=== PATIENT | male | born 1955 | race Caucasian/White ===

== ENCOUNTER → 2019-01-17 | Outpatient (CLI) | payer BC ==
[~2019-01-17] MED LIST: ASPI-555 PO; DIGO250T84 PO; DOXY100T2 PO; LEVO175T9 PO; LISI10TA7 PO; METF-444 PO; METO100T14 PO; PRAV40TA3 PO
== END | disposition home or self-care (01) ==
LOC: RAH 12:48
PROVIDERS: ATTEND Internal Medicine Cardiovascular Disease
DX: G93.89 Other specified disorders of brain (principal); G31.9 Degenerative disease of nervous system, unspecified
CPT/HCPCS: 70450

== ENCOUNTER → 2019-10-31 | Outpatient (CLI) | payer BC ==
[~2019-10-31] MED LIST changes: +DIGO250T73 PO; -DIGO250T84 PO
== END | disposition home or self-care (01) ==
LOC: SHCH 10:06
PROVIDERS: ATTEND Internal Medicine Cardiovascular Disease
DX: I49.5 Sick sinus syndrome (principal)
CPT/HCPCS: 93306

== ENCOUNTER → 2019-10-31 | Outpatient (CLI) | payer OTHER | END | disposition home or self-care (01) | LOC: RAH 10:06 | PROVIDERS: ATTEND Internal Medicine Cardiovascular Disease | DX: Z13.6 Encounter for screening for cardiovascular disorders (principal) | CPT/HCPCS: 75571 ==

== ENCOUNTER → 2019-12-03 | Outpatient (CLI) | payer BC ==
[~2019-12-03] MED LIST changes: -ASPI-555 PO; +ASPI-556 PO; +CLOP75TA14 PO; +DIPH25TA22 PO; +HYDR12.54 PO; +LISI40TA4 PO; +PRED20TA3 PO; +SIMV40TA59 PO
== END | disposition home or self-care (01) ==
LOC: RAH 10:31
PROVIDERS: ATTEND Psychiatry & Neurology Neurology
DX: G93.89 Other specified disorders of brain (principal)
CPT/HCPCS: 70450

== ENCOUNTER → 2019-12-15 | Outpatient (CLI) | payer BC ==
[~2019-12-15] MED LIST changes: +ASPI-555 PO; -ASPI-556 PO; -CLOP75TA14 PO; -DIPH25TA22 PO; -HYDR12.54 PO; -LISI40TA4 PO; -PRED20TA3 PO; +REGADENOSON 0.4 MG/5 ML PF SYG IVP SCH; -SIMV40TA59 PO
== END | disposition home or self-care (01) ==
LOC: SHCH 07:59
PROVIDERS: ATTEND Internal Medicine Cardiovascular Disease
DX: I10 Essential (primary) hypertension (principal); I48.20 Chronic atrial fibrillation, unspecified
CPT/HCPCS: 78452; 93017; 96374; A9500 ×2; J2785

== ENCOUNTER 2020-06-11 07:20 | Observation (INO) | payer BC ==
[2020-06-09 09:22] LABS: CREATININE 1.3 mg/dL (0.5-1.5); POTASSIUM 4.5 mmol/L (3.5-5.1)
[2020-06-09 09:28] LABS: INR 1.01 (0.85-1.15); PARTIAL THROMBOPLASTIN TIME 29.4 SEC (26.3-35.5); PROTHROMBIN TIME 10.9 SEC (9.6-11.6)
[2020-06-09 09:51] LABS: BASOPHILS % (AUTO) 0.8 % (0.0-5.0); EOSINOPHILS % (AUTO) 1.7 % (0.0-8.0); HEMATOCRIT 47.9 % (42-54); LYMPHOCYTES % (AUTO) 14.7 % (21.0-51.0); MEAN CORPUSCULAR HEMOGLOBIN 29.7 pg (27.0-33.0); MEAN CORPUSCULAR HGB CONC 31.9 g/dL (32.0-36.0); MONOCYTES % (AUTO) 5.7 % (3.0-13.0); NEUTROPHILS % (AUTO) 76.7 % (40.0-77.0); PLATELET COUNT (AUTO) 206 K/uL (130-400); RED BLOOD CELL COUNT(AUTO) 5.15 MIL/uL (4.50-6.20); RED CELL DISTRIBUTION WIDTH 13.8 % (11.0-15.5); WHITE BLOOD COUNT (AUTO) 7.7 K/uL (4.8-10.8)
[2020-06-09 09:57] LABS: APPEARANCE,URINE Clear (CLEAR); BILIRUBIN,URINE Negative (NEGATIVE); COLOR,URINE Yellow (YELLOW); GLUCOSE, URINE (UA) Negative (NEGATIVE); KETONES,URINE Negative (NEGATIVE); LEUKOCYTE ESTERASE ,URINE Negative (NEGATIVE); NITRATE,URINE Negative (NEGATIVE); OCCULT BLOOD,URINE Negative (NEGATIVE); PROTEIN,URINE Negative (NEGATIVE)
--- NOTE | 2020-06-10 10:58 | NUR ---
Reported fisher reef net of 1.3 to Philipp HUMPHREY, no new orders.
[~2020-06-11] VITALS: Ht 188 cm; Wt 144.0 kg
[2020-06-11] VITALS (21 sets, daily range): BP systolic 118–150; BP diastolic 76–93
[~2020-06-11 07:20] MED LIST changes: +ACETAMINOPHEN 325 MG TAB PO PRN; -ASPI-555 PO; +ASPI-556 PO; +CLOP75TA14 PO; +DIPH25TA18 PO; -DOXY100T2 PO; -LISI10TA7 PO; +LISI40TA4 PO; -PRAV40TA3 PO; +PRED20TA3 PO; -REGADENOSON 0.4 MG/5 ML PF SYG IVP SCH; +SIMV40TA59 PO; +SODIUM CHLORIDE 0.9% 500ML 500 ML IV SCH
[2020-06-11 07:42] LABS: HEMATOCRIT 45.1 % (42-54); MEAN CORPUSCULAR HEMOGLOBIN 29.6 pg (27.0-33.0); MEAN CORPUSCULAR HGB CONC 31.7 g/dL (32.0-36.0); MEAN CORPUSCULAR VOLUME 93.4 fL (79-99); RED BLOOD CELL COUNT(AUTO) 4.83 MIL/uL (4.50-6.20); RED CELL DISTRIBUTION WIDTH 13.6 % (11.0-15.5); WHITE BLOOD COUNT (AUTO) 13.4 K/uL (4.8-10.8)
[2020-06-11] MEDS ORDERED: SODIUM CHLORIDE 0.9% 1000ML 1,000 ML IV SCH (08:00)
[2020-06-11] MEDS ORDERED: METF-446 PO (08:22)
[2020-06-11] MEDS: DiphenhydrAMINE HCL 50 MG/ML VIAL IVP SCH (12:09)
[2020-06-11] MEDS: METHYLPREDNISOLONE SOD SUCC 125MG/2ML VIAL IVP SCH (12:09)
[2020-06-11] MEDS ORDERED: SODIUM BICARB 50MEQ 50ML VIAL 50 ML ONE (12:10)
[2020-06-11] MEDS ORDERED: HEPARIN SODIUM 1000UNIT/ML 10ML VIAL ONE (12:10)
[2020-06-11] MEDS ORDERED: IOHEXOL 350 MG/ML 100ML INFUS..BTL IV ONE (12:11)
[2020-06-11] MEDS ORDERED: NITROGLYCERIN 2 MG/VIAL VIAL IV ONE (12:11)
[2020-06-11] MEDS ORDERED: LIDOCAINE HCL 2% 20ML ONE (12:11)
[2020-06-11] MEDS ORDERED: IOHEXOL-350 75 ML VIAL IV ONE (12:11)
--- NOTE | 2020-06-11 12:25 | NUR ---
PROCEDURE PT TAKEN TO HEAD PORTER BAGGAGE VIA BED,NO DISTRESS NOTED. SPOUSE AT BEDSIDE.
[2020-06-11] MEDS ORDERED: MIDAZOLAM HCL 1 MG/ML 2ML VIAL ONE ×2 (12:34→12:49)
[2020-06-11] MEDS ORDERED: MEPERIDINE-PF 25 MG/ML SYG ONE ×2 (12:34→12:49)
[2020-06-11] MEDS ORDERED: ASPIRIN 81MG TAB.CHEW ONE (13:20)
[2020-06-11] MEDS ORDERED: NITROGLYCERIN 4.1 GM SPRAY TL ONE (13:54)
[2020-06-11] MEDS ORDERED: ONDANSETRON HCL 4 MG/2 ML VIAL IVP PRN (14:15)
[2020-06-11] MEDS ORDERED: DEXTROSE 50%-WATER 50 ML DISP.SYRIN IV PRN (14:15)
[2020-06-11] MEDS ORDERED: GLUCAGON 1MG KIT 1 MG ML IM PRN (14:15)
[2020-06-11] MEDS ORDERED: ACETAMINOPHEN-CODEINE 300/30MG TAB PO PRN ×2 (14:15)
[2020-06-11] MEDS ORDERED: LABETALOL 20 MG/4 ML DISP.SYRIN IV PRN (14:15)
--- NOTE | 2020-06-11 14:50 | NUR ---
post received pt from research laboratory technician. s/p [facility] with ptca stent proximal RCA. left groin with bruising noted , no hematoma. mynx closure device with pressure dressing in place. see post cath assesment. vs stable on arrival. pt / spouse instructed to maintain bedrest until tomorrow am. pt/ spouse instructed on plan of care. call light within reach. report given to brandon patel rn to resume care of patient
--- NOTE | 2020-06-11 17:28 | NUR ---
REPORT TO DANIELLE FELDMAN RN
--- NOTE | 2020-06-11 19:21 | NUR ---
1750: REPORT GIVEN BY Jones MCCOY RN, PT STABLE NO DISTRESS, VITAL WNL. PT LAYING FLAT IN BED. LT GROIN 2X2 GAUZE WITH OPSITE QUATER SIZE AMOUNT OF BLOOD, AREA MARKED WITH CONTINUE TO MONITOR. CATH SITE TO LT GROIN BRUISED FROM PREVIOUS PRESSURE HELD, PT STATES NO PAIN TO CATH SITE. ILA LOWER EXTREMITIES DOPPLER, WEAK PULSES. NOTED SMALL NICKS TO BILATERAL GROIN SITE, PT STATES RESULT FROM SHAVING FOR PREP THIS MORNING FOR PROCEDURE. NO OOZING TO LT GROIN NOTED, NO ACTIVE BLEEDING TO CATH SITE.
--- NOTE | 2020-06-11 19:36 | NUR ---
REPORT GIVEN TO JUAN RN, RM 403 PT STABLE NO DISTRESS , VITAL WNL. PT LT GROIN DRESSING INTACT , QUATER SIZE BLOOD NOTED AND MARKED, NO ACTIVE BLEEDING OR HEMATOMA NOTED, REPORTED TO JUAN. PT TRANSFERRED IN BED WITH PERSONAL BELONGINGS.
--- NOTE | 2020-06-11 20:00 | NUR ---
PATIENT ARRIVED FROM [employer]IATION NEUROPSYCHOLOGIST. BRUISING TO LEFT GROIN OTHERWISE SOFT WITH MILD TENDERNESS. PRESSURE DRESSING IN PLACE. BLOOD TO THE DRESSING WITH NO ACTIVE BLEEDING. BILATERAL PEDAL PULSES ASSESSED WITH DOPPLER, INTACT. DENIES CHEST PAIN OR SOB. WILL CONTINUE TO MONITOR. BEDREST UNTIL AM.
[2020-06-11] MEDS: INSULIN HUMULIN R 100 UNIT/ML 3ML SQ SCH (22:03)
[2020-06-11] MEDS: METOPROLOL TARTRATE 50 MG TAB PO SCH (22:04)
[2020-06-11] MEDS: SIMVASTATIN 20 MG TABLET PO SCH (22:04)
[2020-06-11] MEDS: ASPIRIN 81 MG EC TAB PO SCH (22:04)
[2020-06-11] MEDS: DIGOXIN 250 MCG TABLET PO SCH (22:04)
[2020-06-12] VITALS (8 sets, daily range): BP systolic 123–151; BP diastolic 69–103
[2020-06-12 06:23] LABS: HEMATOCRIT 41.9 % (42-54); MEAN CORPUSCULAR HEMOGLOBIN 29.8 pg (27.0-33.0); MEAN CORPUSCULAR HGB CONC 32.5 g/dL (32.0-36.0); MEAN CORPUSCULAR VOLUME 91.9 fL (79-99); RED BLOOD CELL COUNT(AUTO) 4.56 MIL/uL (4.50-6.20); RED CELL DISTRIBUTION WIDTH 13.8 % (11.0-15.5); WHITE BLOOD COUNT (AUTO) 12.2 K/uL (4.8-10.8)
[2020-06-12] MEDS: LEVOTHYROXINE 100 MCG TABLET PO SCH (06:26)
[2020-06-12] MEDS: LEVOTHYROXINE 75 MCG TABLET PO SCH (06:26)
[2020-06-12] MEDS: INSULIN HUMULIN R 100 UNIT/ML 3ML SQ SCH ×4 (06:28→20:56)
--- NOTE | 2020-06-12 06:30 | NUR ---
PATIENT SAT UP IN BED. GROIN WITH BRUISING NO HEMATOMA. PEDAL PULSES INTACT WITH DOPPLER
[2020-06-12 06:38] LABS: CREATININE 1.1 mg/dL (0.5-1.5); DIGOXIN 0.9 ng/mL (0.50-2.00); POTASSIUM 4.2 mmol/L (3.5-5.1)
[2020-06-12] MEDS: CLOPIDOGREL BISULFATE 75 MG TAB PO SCH (08:22)
[2020-06-12] MEDS: METOPROLOL TARTRATE 50 MG TAB PO SCH ×2 (08:23→20:55)
[2020-06-12] MEDS: LISINOPRIL 40 MG TABLET PO SCH (08:24)
[2020-06-12] MEDS: SODIUM CHLORIDE 0.9% 1000ML 1,000 ML IV SCH (08:33)
[2020-06-12] MEDS: METHYLPREDNISOLONE SOD SUCC 125MG/2ML VIAL IVP SCH (10:30)
[2020-06-12] MEDS: DiphenhydrAMINE HCL 50 MG/ML VIAL IVP SCH (10:30)
[2020-06-12] MEDS: ASPIRIN 81 MG EC TAB PO SCH (20:54)
[2020-06-12] MEDS: SIMVASTATIN 20 MG TABLET PO SCH (20:54)
[2020-06-12] MEDS: DIGOXIN 250 MCG TABLET PO SCH (21:31)
[2020-06-13 04:18] VITALS: BP 136/83
[2020-06-13] MEDS: LEVOTHYROXINE 75 MCG TABLET PO SCH (05:46)
[2020-06-13] MEDS: LEVOTHYROXINE 100 MCG TABLET PO SCH (05:46)
[2020-06-13] MEDS: INSULIN HUMULIN R 100 UNIT/ML 3ML SQ SCH (05:46)
[2020-06-13 06:17] LABS: HEMATOCRIT 45.9 % (42-54); MEAN CORPUSCULAR HEMOGLOBIN 29.2 pg (27.0-33.0); MEAN CORPUSCULAR HGB CONC 31.2 g/dL (32.0-36.0); MEAN CORPUSCULAR VOLUME 93.7 fL (79-99); RED BLOOD CELL COUNT(AUTO) 4.9 MIL/uL (4.50-6.20); RED CELL DISTRIBUTION WIDTH 14.2 % (11.0-15.5); WHITE BLOOD COUNT (AUTO) 9.2 K/uL (4.8-10.8)
[2020-06-13 06:30] LABS: CREATININE 1.2 mg/dL (0.5-1.5); POTASSIUM 4.2 mmol/L (3.5-5.1)
[2020-06-13 08:00] VITALS: BP 145/81
[2020-06-13] MEDS: METOPROLOL TARTRATE 50 MG TAB PO SCH (08:32)
[2020-06-13] MEDS: CLOPIDOGREL BISULFATE 75 MG TAB PO SCH (08:33)
[2020-06-13] MEDS: LISINOPRIL 40 MG TABLET PO SCH (08:33)
[2020-06-13] MEDS: METHYLPREDNISOLONE SOD SUCC 125MG/2ML VIAL IVP SCH (08:34)
[2020-06-13] MEDS: DiphenhydrAMINE HCL 50 MG/ML VIAL IVP SCH (08:34)
--- NOTE | 2020-06-13 11:17 | NUR ---
discharge patient being discharged home. went over discharge instructions with patient...answered all questions and concerns..he states he already has a fu with slot router jef for the ...patient aware of prescriptions sent to his [facility] in [place]...
== END 2020-06-13 11:58 | disposition home or self-care (01) ==
LOC: DAH 07:20 → DAHIP 07:21 → 4AH 19:55
PROVIDERS: ADMIT Internal Medicine; ATTEND Internal Medicine
DX: I25.119 Atherosclerotic heart disease of native coronary artery with unspecified angina pectoris (principal); I10 Essential (primary) hypertension; E03.9 Hypothyroidism, unspecified; E11.9 Type 2 diabetes mellitus without complications; E78.2 Mixed hyperlipidemia; E66.01 Morbid (severe) obesity due to excess calories; S30.1XXA Contusion of abdominal wall, initial encounter; Z95.5 Presence of coronary angioplasty implant and graft; Z79.84 Long term (current) use of oral hypoglycemic drugs; Z79.899 Other long term (current) drug therapy; Z68.41 Body mass index [BMI] 40.0-44.9, adult; X58.XXXA Exposure to other specified factors, initial encounter; Y93.89 Activity, other specified; Y92.89 Other specified places as the place of occurrence of the external cause
CPT/HCPCS: 36415 ×4; 71045; 76882; 80048 ×3; 80162; 81003; 82948 ×8; 85025; 85027 ×3; 85610; 85730; 93005; 93454; 96361; 96372 ×2; 96374; 96375; A4215; A4216; A4221; A4222; A4223 ×3; A4606; A4663; C1760 ×2; C1769; C1874; C1887; C1894 ×2; C9600; G0378 ×18; J1200; J1644 ×2; J1815; J2175 ×2; J2250 ×2; J2930; J3490 ×3; J7030; Q9965; Q9967; 99156; 99157

== ENCOUNTER → 2022-03-15 | Outpatient (CLI) | payer BC ==
[~2022-03-15] MED LIST changes: -ACETAMINOPHEN 325 MG TAB PO PRN; -LISI40TA4 PO; +LISI40TA9 PO; -METF-444 PO; +METF-446 PO; -SODIUM CHLORIDE 0.9% 500ML 500 ML IV SCH
== END | disposition home or self-care (01) ==
LOC: SHCH 10:19
PROVIDERS: ATTEND Internal Medicine Cardiovascular Disease
DX: I51.7 Cardiomegaly (principal); I25.5 Ischemic cardiomyopathy; Z95.5 Presence of coronary angioplasty implant and graft
CPT/HCPCS: 93306

== ENCOUNTER → 2024-07-25 | Outpatient (CLI) | payer BC ==
[~2024-07-25] MED LIST changes: +CLOP-31 PO; -CLOP75TA14 PO
[2024-07-25] MEDS: REGADENOSON 0.4 MG/5 ML PF SYG IVP ONE (11:11)
== END | disposition home or self-care (01) ==
LOC: SHCH 08:29
PROVIDERS: ATTEND Internal Medicine Cardiovascular Disease
DX: I25.10 Atherosclerotic heart disease of native coronary artery without angina pectoris (principal)
CPT/HCPCS: 78452; 93017; J2785; A9500 ×2

== ENCOUNTER → 2024-10-21 | Outpatient (CLI) | payer MEDICARE ==
[~2024-10-21] MED LIST changes: +AMLO-257 PO; -ASPI-556 PO; -CLOP-31 PO; +DILT240T13 PO; -DIPH25TA18 PO; +EMPA25TA PO; -PRED20TA3 PO; +RIVA20TA PO
--- NOTE | 2024-10-22 09:44 | HMCSR ---
APPROVED REPORT EXAM: Two-dimensional and M-mode echocardiogram with Doppler and color Doppler. INDICATION ICD: Essential (primary) Hypertension I10.0 2D Dimensions RVDd4.5 cmLVEF(%)51.3 (>50%)LVED Vol(simp.)135.0 mL IVSd1.3 (0.7-1.1cm)FS(%)26 %LVES Vol(simp.)55.0 mL LVDd4.9 (3.8-5.6cm)Ao Root(2D)3.6 (2.0-3.7cm)LVEF(%, simp.)59 % PWd1.4 (0.7-1.1cm)LVOT diam2.3 (1.8-2.4cm)LA ESV INDEX (BP)56.33 mL/m2 LVDs3.6 (2.5-4.0cm) Aortic Valve AoV Vmax1.5 m/Filemon Peak GR8.4 mmHgLVOT Vmax1.3 m/s AoV VTI0.3 mAo Mean GR5.2 mmHgLVOT VTI0.24 m MELITA (VMAX)3.7 cm2AVA (VTI) 3.7 cm2 Mitral Valve MV E Vmax94.8 cm/sDECEL Smjs519 ms P 1/2 T55 ms MVA (PHT)4.0 cm2 TDI E/E' Medial8.6E/E' Lateral9.1 Pulmonary Valve PV Vmax0.8 m/sPV VTI0.14 mPV Mean GR1 mmHg PV Peak GR2.6 mmHg Tricuspid Valve TR Vmax2.1 m/sRAP (EST) 3 bpSbRVJO08.0 mmHg TR Peak GR17.0 mmHg Left Ventricle Left ventricular cavity size is normal. There is mild to moderate concentric left ventricular hypertr ophy. LVEF is 50-55%. No left ventricle thrombus noted on this study. Indeterminate diastolic dysfunc tion. Right Ventricle The right ventricle is dilated. The right ventricular systolic function is normal. Atria The left atrium is severely dilated. The right atrium is moderately dilated. Aortic Valve Aortic valve is trileaflet. Aortic valve leaflets are sclerotic but open well. Trace aortic regurgita tion. There is no aortic valvular stenosis. Mitral Valve Mitral valve leaflets are sclerotic but open well. Mitral regurgitation is trace. There is no mitral valve stenosis. Tricuspid Valve The tricuspid valve leaflets appear normal. There is trace tricuspid regurgitation. Pulmonic Valve Pulmonic valve is not well visualized. There is trace pulmonic valvular regurgitation. Great Vessels The aortic root is normal in size. IVC is dilated and collapses >50% with inspiration. Pericardium No pericardial effusion. Conclusion Left ventricular cavity size is normal. There is mild to moderate concentric left ventricular hypertrophy. LVEF is 50-55%. The right ventricle is dilated. The left atrium is severely dilated. The right atrium is moderately dilated. Aortic valve is trileaflet. Aortic valve leaflets are sclerotic but open well. Trace aortic regurgitation. Mitral valve leaflets are sclerotic but open well. Mitral regurgitation is trace. There is trace tricuspid regurgitation. The aortic root is normal in size. IVC is dilated and collapses >50% with inspiration. No pericardial effusion.
== END | disposition home or self-care (01) ==
LOC: SHCH 14:00
PROVIDERS: ATTEND Internal Medicine Cardiovascular Disease
DX: I08.0 Rheumatic disorders of both mitral and aortic valves (principal); I11.9 Hypertensive heart disease without heart failure
CPT/HCPCS: 93306

== ENCOUNTER 2025-06-08 06:40 | Day surgery (SDC) | payer MEDICARE ==
[2025-06-05 12:42] LABS: IMMATURE GRANULOCYTE ABSOLUTE 0.02 K/uL (0-1); NUCLEATED RED BLOOD CELLS 0.0 % (0.0-0.19); PLATELET COUNT (AUTO) 166 K/uL (130-400); RED BLOOD CELL COUNT(AUTO) 5.35 MIL/uL (4.50-6.20); RED CELL DISTRIBUTION WIDTH 14.9 % (11.0-15.5); WHITE BLOOD COUNT (AUTO) 6.1 K/uL (4.8-10.8)
[2025-06-05 12:52] LABS: INR 1.08 (0.85-1.15)
[2025-06-05 12:57] VITALS: BP 130/63; PULSE 73; RESP 18; TEMP 97.8
[2025-06-05 12:58] LABS: CREATININE 1.3 mg/dL (0.5-1.3); GLOMERULAR FILTR. RATE CALC 60.0 mL/min (>90); GLUCOSE,RANDOM 173.0 mg/dL (70-105); SODIUM SERUM 138.0 mmol/L (136-145); UREA NITROGEN, BLOOD 15.0 mg/dL (7-18)
--- NOTE | 2025-06-05 13:20 | EKG ---
[facility] Test Date: 2025-06-05 Test Time: 12:23:33 Pat Name: YOVANI GUALLPA Department: [facility] Room: Gender: M Assistant Credit Manager: [id number] : 1955 Requested By: Maurisio HIDALGO Order Number: [id number] Reading MD: Thompson Gonzalez Measurements Intervals [place] Rate: 70 P: 0 MS: 0 QRS: 158 QRSD: 212 T: -35 QT: 487 QTc: 524 Interpretive Statements ventricular-paced rhythm Biventricular paced rhythm Compared to ECG 10/08/2024 12:57:15 No significant changes Electronically Signed On 06-05-2025 13:33:23 CDT by Thompson Gonzalez Please click the below link to view image of tracing.
--- NOTE | 2025-06-05 14:02 | NUR ---
REPORT ADONIS ONEIL GRAIN OPERATIONS MANAGER INFORMED PT LAST TOOK XARELTO 20MG ON 06/01 DUE TO PT RUNNING OUT. OK TO PROCEED WITH PROCEDURE AND SHE WILL BE CALLING IN A REFILL FOR PT
[~2025-06-08] VITALS: Ht 188 cm; Wt 131.5 kg
[2025-06-08] VITALS (11 sets, daily range): BP systolic 127–140; BP diastolic 81–95; PULSE 71–80; RESP 14–19; TEMP 96.9–97.6
[~2025-06-08 06:40] MED LIST changes: -AMLO-257 PO; +HYDR25TA67 PO; +LISI40TA15 PO; -LISI40TA9 PO
[2025-06-08] MEDS: 0.9%NACL 1000ML 1,000 ML IV SCH (07:35)
[2025-06-08] MEDS ORDERED: LIDOCAINE HCL 1% MDV 50ML VIAL ONE (08:43)
[2025-06-08] MEDS ORDERED: SODIUM BICARB 50MEQ 50ML VIAL 50 ML ONE (08:43)
[2025-06-08] MEDS ORDERED: MIDAZOLAM HCL 1 MG/ML 2ML VIAL ONE ×4 (09:12→09:55)
--- NOTE | 2025-06-08 10:50 | NUR ---
DRESSING: PRESSURE DRESSING TO LEFT UPPER CHEST DRY/INTACT
[2025-06-08] MEDS ORDERED: DEXTROSE 50%-WATER 50 ML DISP.SYRIN IV PRN (11:00)
--- NOTE | 2025-06-08 11:05 | NUR ---
DRESSING: PRESSURE DRESSING TO LEFT UPPER CHEST REMAINS DRY/INTACT. Addendum: 06/08/25 at 1136 by IRSI CISNEROS RN RN ICE BAG APPLIED TO OP-SITE
--- NOTE | 2025-06-08 11:20 | NUR ---
DRESSING: PRESSURE DRESSING TO LEFT UPPER CHEST DRY/INTACT WITH ICE BAG IN PLACE.
--- NOTE | 2025-06-08 11:35 | NUR ---
DRESSING: PRESSURE DRESSING TO LEFT UPPER CHEST REMAINS DRY/INTACT WITH ICE BAG IN PLACE.
--- NOTE | 2025-06-08 11:45 | NUR ---
DRESSING: PRESSURE DRESSING TO LEFT UPPER CHEST REMAINS DRY/INTACT WITH ICE BAG IN PLACE TO OPSITE
--- NOTE | 2025-06-08 12:15 | NUR ---
dressing: pressure dressing to left upper chest remains dry/intact with ice bag in place
--- NOTE | 2025-06-08 12:45 | NUR ---
dressing: pressure dressing to left upper chest remains dry/intact with no active bleeding, ice bag in place
--- NOTE | 2025-06-08 13:15 | NUR ---
dressing: pressure dressing to left upper chest remains dry/intact with ice bag in place
--- NOTE | 2025-06-08 14:11 | NUR ---
urinary: voided 450 cc dark yellow color urine per urinal without difficulty.
--- NOTE | 2025-06-08 14:15 | NUR ---
DRESSING PRESSURE DRESSING TO LEFT UPPER CHEST. NO ACTIVE BLEEDING OR DRAINAGE NOTED. NO REDNESS OR SWELLING NOTED.
--- NOTE | 2025-06-08 15:00 | NUR ---
DRESSING REMOVED PRESSURE DRESSING. 4X4 NON ADHERENT GAUZE DRY AND INTACT. NO ACTIVE BLEEDING OR DRAINAGE DRESSING DRY AND INTACT. NO REDNESS OR SWELLING NOTED. LEFT UPPER CHEST SOFT TO TOUCH.
== END 2025-06-08 15:16 | disposition home or self-care (01) ==
LOC: DAH 06:40
PROVIDERS: ATTEND Internal Medicine Cardiovascular Disease
DX: Z45.02 Encounter for adjustment and management of automatic implantable cardiac defibrillator (principal); I42.8 Other cardiomyopathies; I48.20 Chronic atrial fibrillation, unspecified; I10 Essential (primary) hypertension; I25.10 Atherosclerotic heart disease of native coronary artery without angina pectoris; E78.5 Hyperlipidemia, unspecified; E03.9 Hypothyroidism, unspecified; E66.01 Morbid (severe) obesity due to excess calories; Z68.37 Body mass index [BMI] 37.0-37.9, adult; Z91.041 Radiographic dye allergy status; Z79.899 Other long term (current) drug therapy; Z98.890 Other specified postprocedural states
CPT/HCPCS: 80048; 85025; 85610; 85730; 36415; 93005; 33264; 99156; 99157 ×4; 82948 ×2; A4223 ×3; C1882; J3010; J0690 ×2; J0665; J3490 ×2; J2250 ×4; A4215; A4222; A4221; A4663; A4216; A4606